=== PATIENT | female | born 1990 | race Two or more races ===

== ENCOUNTER 2021-03-15 14:29 | Emergency (ER) | payer OTHER ==
[~2021-03-15] VITALS: Ht 149.9 cm; Wt 59.0 kg
[2021-03-15] MEDS ORDERED: VITAMIN D-40010 MCG (14:39)
[2021-03-15] MEDS ORDERED: [UNRECOGNIZED DRUG - OTHER] (14:39)
[2021-03-15] MEDS ORDERED: VISTARIL50 MG PO (16:17)
[2021-03-15] MEDS ORDERED: EPIPEN 2-P0.3 MG/0.3 IM (16:17)
[2021-03-15] MEDS ORDERED: PREDNISONE20 M1 PO (16:17)
== END 2021-03-15 17:40 | disposition home or self-care (01) ==
LOC: ER 14:29
DX: R06.02 Shortness of breath (principal); T78.1XXA Other adverse food reactions, not elsewhere classified, initial encounter; X58.XXXA Exposure to other specified factors, initial encounter